=== PATIENT | female | born 1985 | race Caucasian/White ===

== ENCOUNTER 2022-04-06 07:31 | Outpatient (CLI) | payer BC ==
[~2022-04-06] VITALS: Ht 167.6 cm; Wt 135.0 kg
[2022-04-06 08:00] VITALS: BP 109/56; PULSE 95; TEMP 98.4
[2022-04-06] MEDS ORDERED: SYNTHROID0.2 MG/TAB PO (08:04)
[2022-04-06] MEDS ORDERED: MILLIPRED DP5 MG PO (08:05)
[2022-04-06] MEDS ORDERED: DDAVP (08:07)
[2022-04-06] MEDS ORDERED: ASPIRIN 81M81 MG/TA2 PO (08:08)
--- NOTE | 2022-04-06 08:17 | NUR ---
0800 PATIENT HERE FOR COMPLAINTS OF NOT FEELING BABY MOVE SINCE LAST NIGHT AFTER MASSAGE. EFM ON FHT 120, BABY VERY ACTIVE. PATIENT STATES SHE FEELS BABY MOVE NOW. NO CONTRACTIONS ON MONITOR OR FELT BY PATIENT. PATIENT OBESE SO HARD TO [employer]ER BABY. ASSESSMENT COMPLETED AT THIS TIME. PATIENT HAS A VERY LONG PROBLEM LIST. SEE PRENATELS FOR QUESTIONS AT THIS TIME. PATIENT DENIES NEEDS AT THIS TIME.
--- NOTE | 2022-04-06 08:22 | NUR ---
9080 DR DAWN CALLED AND UPDATED ON ALL PATIENTS HISTORY AND REASON FOR VISIT. FHT 120 AND BABY VERY ACTIVE. ORDERS TO WATCH FOR 20 MIN AND DISMISS TO HOME IF REACIVE.
[2022-04-06 08:34] VITALS: PULSE 84
--- NOTE | 2022-04-06 08:35 | NUR ---
0830 ALL DISCHARGE INSTRUCTIONS GIVEN TO PATIENT AND VERBAL UNDERSTANDING NOTED. DENIES NEEDS. WILL KEEP REGULAR FOLLOW UP WITH DR DEL ROSARIO.
== END 2022-04-06 08:40 | disposition home or self-care (01) ==
LOC: LDRO 07:31
DX: O36.8130 Decreased fetal movements, third trimester, not applicable or unspecified (principal); Z3A.35 35 weeks gestation of pregnancy